=== PATIENT | male | born 1930 | race Caucasian/White ===

== ENCOUNTER 2016-05-22 16:37 | Emergency (ER) | payer MEDICARE, OTHER ==
[~2016-05-22 16:37] MED LIST: FLOMAX 0.4 MG0.4 MG PO; ISOSORBIDE MONO20 MG PO; KENALOG CREAM 015 GM TOP; LOPRESSOR 25 MG25 MG PO; SYNTHROID 100100 MCG PO; ZOCOR 40 MG TAB40 MG PO
== END 2016-05-22 22:16 | disposition left against medical advice (07) ==
LOC: ER1 16:37
DX: Z53.21 Procedure and treatment not carried out due to patient leaving prior to being seen by health care provider (principal)

== ENCOUNTER 2016-07-15 22:06 | Emergency (ER) | payer MEDICARE, OTHER | END 2016-07-16 02:36 | disposition home or self-care (01) | LOC: ER1 22:06 | DX: R10.9 Unspecified abdominal pain (principal); R14.1 Gas pain; I10 Essential (primary) hypertension; Z95.0 Presence of cardiac pacemaker | CPT/HCPCS: 74000; 99284 ==

== ENCOUNTER 2020-03-08 14:20 | Inpatient (IN) | payer MEDICARE, OTHER ==
[~2020-03-08] VITALS: Ht 167.6 cm; Wt 74.8 kg
[~2020-03-08 14:20] MED LIST changes: +ARICEPT10 MG PO; +ASPIRIN EC81 MG PO; +ATORVASTATIN CA20 MG PO; +BACTROBAN OINT22 GM TOP; +BENZONATATE100 MG PO; +CEFDINIR300 MG PO; +COLACE 100MG C100 MG PO; +CONSTULOSE10 GM/15 M PO; +COREG 3.125M3.125 MG PO; +DOK PLUS TABLE1 EACH PO; +FERROUS GLUCON324 M1 PO; +FLONASE 0.05% N16 GM; +HYDROCORTISONE30 G4 TP; +KETOCONAZOLE120 ML TOP; +LEVOFLOXACIN250 MG PO; +LINZESS145 MCG PO; +LIORESAL TAB 1010 MG PO; +MIRALAX17 GM PO; +MUCINEX COLD-F180 ML PO; +OMEPRAZOLE40 MG PO; +PROVENTIL HFA6.7 GM INH; +SYNTHROID125 MCG PO; +SYNTHROID150 MCG PO; +TAMIFLU 75 MG C75 MG PO; +TESSALON PERLE100 MG PO; +TYLENOL 325MG325 MG PO; +VITAMIN C500 M4 PO; +VOLTAREN100 GM TOP; +ZINC50 M2 PO; +[UNRECOGNIZED DRUG - OTHER]
[2020-03-08 15:15] LABS: HEMOGLOBIN 10.8 gm/dl (14.0-17.5); RED BLOOD COUNT 3.37 M/UL (4.20-5.50); WHITE BLOOD COUNT 11.2 K/UL (4.5-11.0)
[2020-03-09 07:18] LABS: HEMOGLOBIN 9.6 gm/dl (14.0-17.5); RED BLOOD COUNT 3.09 M/UL (4.20-5.50)
[2020-03-09 07:29] LABS: WHITE BLOOD COUNT 4.3 K/UL (4.5-11.0)
[2020-03-11 08:53] LABS: HEMOGLOBIN 10.5 gm/dl (14.0-17.5); RED BLOOD COUNT 3.22 M/UL (4.20-5.50); WHITE BLOOD COUNT 3.5 K/UL (4.5-11.0)
[2020-03-12] MEDS ORDERED: LEVOTHYROXINE100 MCG PO (12:58)
[2020-03-12] MEDS ORDERED: NORVASC5 MG PO (12:58)
[2020-03-12] MEDS ORDERED: FERROUS GLUCON324 M1 PO (12:58)
[2020-03-12] MEDS ORDERED: THERAGRAN M TAB1 EA PO (12:58)
[2020-03-12] MEDS ORDERED: AUGMENTIN250 MG/51 PO (12:58)
== END 2020-03-12 18:45 | disposition home health service (06) | DRG 177 ==
LOC: ER1 14:20 → MED SURG 4 17:24 → CDU 17:24 → MED SURG 4 21:55
PROVIDERS: Emergency Medicine; Internal Medicine Infectious Disease; ADMIT Internal Medicine
PROC: 8E0ZXY6 Isolation (ICD-10-PCS; principal; 2020-03-08)
DX: U07.1 COVID-19 (principal); J12.82 Pneumonia due to coronavirus disease 2019; G93.41 Metabolic encephalopathy; J69.0 Pneumonitis due to inhalation of food and vomit; Z95.0 Presence of cardiac pacemaker; R13.10 Dysphagia, unspecified; I12.9 Hypertensive chronic kidney disease with stage 1 through stage 4 chronic kidney disease, or unspecified chronic kidney disease; N18.30 Chronic kidney disease, stage 3 unspecified; E03.9 Hypothyroidism, unspecified; G30.9 Alzheimer's disease, unspecified; F02.80 Dementia in other diseases classified elsewhere, unspecified severity, without behavioral disturbance, psychotic disturbance, mood disturbance, and anxiety; Z86.73 Personal history of transient ischemic attack (TIA), and cerebral infarction without residual deficits; Z79.82 Long term (current) use of aspirin; Z79.899 Other long term (current) drug therapy; R29.6 Repeated falls; Z91.81 History of falling
CPT/HCPCS: 36415; 36600; 70450; 71045; 80053; 81001; 82140; 82550; 82553; 82607; 82803; 83605; 83690; 83735; 83874; 83880; 84100; 84439; 84443; 84484; 85025; 85610; 85730; 86140; 87040; 87086; 93005; 96365; 96366; 96368; 96372; 96375; 97162; 99285; J0295; J0696; J1650; J3370; J3486; U0002

== ENCOUNTER → 2020-04-09 | Outpatient (CLI) | payer MEDICARE, OTHER ==
[~2020-04-09] MED LIST changes: +AUGMENTIN250 MG/51 PO; +LEVOTHYROXINE100 MCG PO; +NORVASC5 MG PO; +THERAGRAN M TAB1 EA PO
== END ==
LOC: RAD 17:06
DX: R07.81 Pleurodynia (principal)
CPT/HCPCS: 71111